=== PATIENT | male | born 1970 | race Caucasian/White ===

== ENCOUNTER 2023-07-13 08:55 | Day surgery (SDC) | payer OTHER, SELFPAY ==
[2023-07-13] VITALS (7 sets, daily range): BP systolic 98–119; BP diastolic 61–86; PULSE 51–55; RESP 16; TEMP 36.2–36.3; O2SAT 94–100; BMI 30.6
--- NOTE | 2023-07-13 09:16 | HP.PCM_ITS ---
[facility] - General General Date of Admission: 07/13/23 Date of Service: 07/13/23 Chief Complaint: Screening colonoscopy HPI Narrative EFRAÍN ADEN, is a 53 M who presents today for a Screening colonoscopy. He has never had a colonoscopy in the past. He is no family history of colon cancer. Past medical is positive for metabolic syndrome, type 2 diabetes and mild depression. He is not having any chest pain at this time. He does not have any shortness of breath. He is not having any nausea, vomiting or diarrhea. Overall is in very good health. [facility] Medical History (Updated 07/08/23 @ 11:39 by Karen Lerma) Back pain CPAP (continuous positive airway pressure) dependence Depression Diabetes mellitus type 2, controlled, without complications Dietary restriction Heartburn Non-smoker Restless legs Home Medications metformin 1,000 mg tablet 1,000 mg PO DAILY 05/06/23 [History Last Taken Unknown] tadalafil 5 mg tablet (Cialis) 5 mg PO DAILY sexual activity 05/06/23 [History Last Taken Unknown] sertraline 50 mg tablet 50 mg PO QHS 07/08/23 [History Last Taken Unknown] Allergy/AdvReac Type Severity Reaction Status Date / Time Penicillins Allergy PT UNSURE Verified 07/08/23 11:32 OF REACTION morphine AdvReac Intermediate Other Verified 07/08/23 11:33 Surgical History (Updated 05/06/23 @ 10:00 by Alycia Harris) History of open reduction and internal fixation (ORIF) procedure Social History (Updated 05/06/23 @ 10:00 by Alycia Harris) household members: spouse current occupational status: employed Smoking Status: Never smoker ROS Review of Systems ROS Unobtainable: other Constitutional Constitutional: Denies fatigue, fever(s), poor appetite, weight gain or weight loss ENT HEENT: Denies mouth lesions Cardiovascular Cardiovascular: Denies abdominal bloating, abdominal edema or abdominal pain Respiratory/Chest Respiratory/Chest: Denies change in mental status, change in phlegm color, chest congestion or chest tightness Gastrointestinal Gastrointestinal: Denies belching, bloating, change in bowel habits, change in stool character, chewing difficulty, coffee ground emesis, constipation, cramping, diarrhea, dyspepsia, dysphagia, early satiety, excessive flatus, fecal incontinence, heartburn, hematemesis, hematochezia, hemorrhoids, loose stools, melena, nausea, odynophagia, rectal bleeding, tenesmus, vomiting or weight changes Genitourinary Genitourinary: Denies abdominal discomfort, burning urination or itching Musculoskeletal Musculoskeletal: Reports as per HPI; Denies muscle weakness or myalgias Integumentary Integumentary: Denies jaundice Neurologic Neurologic: Denies lack of coordination or weakness Psychiatric Psychiatric: Denies confusion, depression, memory loss, mood swings, paranoia or suicidal ideation Endocrine Endocrinology: Denies systems reviewed and no addt'l complaints, except as documented Hematologic/Lymphatic Hematologic/Lymphatic: Denies anemia, easy bleeding, easy bruising or lymphadenopathy Allergic/Immunologic Allergic/Immunologic: Denies systems reviewed and no addt'l complaints, except as documented Physical Exam Const alert General Appearance: cooperative Orientation / Consciousness: oriented to person HEENT hearing grossly normal bilaterally Head and Scalp: normal to inspection Face and Sinus: face symmetric Nose: external nose normal Mouth: oral and palatal mucosa normal Eyes conjunctivae normal General Eye: normal appearance of both eyes Neck full ROM General: normal visual inspection Lymph Lymphatic: no lymphadenopathy noted Chest inspection of chest normal and palpation of chest normal Chest: symmetrical chest wall rise Resp normal respiratory effort Effort and Inspection: able to speak in complete sentences Cardio regular rate GI non-distended Percussion: normal to percussion Rectal Exam: deferred Neuro Speech: speech normal Gait (Neuro): normal gait Assessment & Plan Assessment/Plan (1) Encounter for screening for malignant neoplasm of colon: PLAN: He was explained alternatives, risk, benefits include not withstanding bleeding, infection, sepsis, perforation, need for emergent urgent . He will have an ASA of 2.
[2023-07-13] MEDS: Lactated Ringers 1,000 ML 15 ML IV (09:28)
--- NOTE | 2023-07-13 10:14 | OP.COLON_ITS ---
Patient Name: Rashard Ching Procedure Date: 07/13/2023 9:44 AM Date of : 1970 Age: 53 Procedure: Colonoscopy Indications: Screening for colorectal malignant neoplasm Providers: Ramos Dodd DO Referring MD: Lady Bryan Medicines: Monitored Anesthesia Care Patient Profile: This is a 53 year old male. Refer to note in patient chart for documentation of history and physical. Last Colonoscopy: none. The patient's first colonoscopy is today. Complications: No immediate complications. Procedure: Pre-Anesthesia Assessment: - Prior to the procedure, a History and Physical was performed, and patient medications and allergies were reviewed. The patient is competent. The risks and benefits of the procedure and the sedation options and risks were discussed with the patient. All questions were answered and informed consent was obtained. Patient identification and proposed procedure were verified by the physician in the pre-procedure area. Mental Status Examination: alert and oriented. Airway Examination: normal oropharyngeal airway and neck mobility. Respiratory Examination: clear to auscultation. CV Examination: normal. Prophylactic Antibiotics: The patient does not require prophylactic antibiotics. Prior Anticoagulants: The patient has taken no anticoagulant or antiplatelet agents. ASA Grade Assessment: II - A patient with mild systemic disease. After reviewing the risks and benefits, the patient was deemed in satisfactory condition to undergo the procedure. The anesthesia plan was to use monitored anesthesia care (MAC). Immediately prior to administration of medications, the patient was re-assessed for adequacy to receive sedatives. The heart rate, respiratory rate, oxygen saturations, blood pressure, adequacy of pulmonary ventilation, and response to care were monitored throughout the procedure. The physical status of the patient was re-assessed after the procedure. After I obtained informed consent, the scope was passed under direct vision. Throughout the procedure, the patient's blood pressure, pulse, and oxygen saturations were monitored continuously. The pediatric colonoscope was introduced through the anus and advanced to the cecum, identified by appendiceal orifice and ileocecal valve. The colonoscopy was performed without difficulty. The patient tolerated the procedure well. The quality of the bowel preparation was adequate. The terminal ileum, ileocecal valve, appendiceal orifice, and rectum were photographed. Scope In: 9:56:01 AM Scope Withdrawal Time 0 hours 8 minutes 57 seconds Scope Out: 10:06:54 AM Total Procedure Duration Time 0 hours 10 minutes 53 seconds Findings: A few small-mouthed diverticula were found in the sigmoid colon. The exam was otherwise without abnormality on direct and retroflexion views. Impression: - Diverticulosis in the sigmoid colon. - The examination was otherwise normal on direct and retroflexion views. - No specimens collected. Recommendation: - Discharge patient to home. - Resume previous diet. - Continue present medications. - Repeat colonoscopy in 10 years for screening purposes. Procedure Code(s): --- Professional --- G0121, Colorectal cancer screening; colonoscopy on individual not meeting criteria for high risk CPT copyright 2021 [employer]. All rights reserved. The codes documented in this report are preliminary and upon internet cafe manager review may be revised to meet current compliance requirements. Ramos Dodd DO 07/13/2023 10:14:02 AM This report has been signed electronically. Number of Addenda: 0 Note Initiated On: 07/13/2023 9:44 AM
--- NOTE | 2023-07-13 10:14 | OP.CCLET_ITS ---
07/13/2023 Lady Bryan Re : Colonoscopy procedure for Rashard Ching Dear Randi This procedure was performed on Thursday, July 13, 2023. My impressions and recommendations are as follows: Impressions : - Diverticulosis in the sigmoid colon. - The examination was otherwise normal on direct and retroflexion views. - No specimens collected. Recommendations : - Discharge patient to home. - Resume previous diet. - Continue present medications. - Repeat colonoscopy in 10 years for screening purposes. My findings are described in the full procedure note, which is enclosed. If I can be of further assistance, please feel free to contact me at . Sincerely, Ramos Dodd, 07/13/2023 10:14:02 AM This report has been signed electronically.
[2023-07-13 11:02] LABS: Bedside Glucose 109 mg/dL (74-106)
== END 2023-07-13 10:57 | disposition home or self-care (01) ==
LOC: EN 08:59 → AC 09:00
PROVIDERS: Visit Provider Internal Medicine Gastroenterology
PROC: 0DJD8ZZ Inspection of Lower Intestinal Tract, Via Natural or Artificial Opening Endoscopic (ICD-10-PCS; CPT 45378; principal; 2023-07-13 09:55)
DX: Z12.11 Encounter for screening for malignant neoplasm of colon (principal); E11.9 Type 2 diabetes mellitus without complications; K57.30 Diverticulosis of large intestine without perforation or abscess without bleeding; Z79.84 Long term (current) use of oral hypoglycemic drugs; F32.A Depression, unspecified; Z99.89 Dependence on other enabling machines and devices; Z79.899 Other long term (current) drug therapy
CPT/HCPCS: 45378; 82962; J7120; J2405